=== PATIENT | female | born 1995 | race Caucasian/White ===

== ENCOUNTER 2017-10-20 00:31 | Emergency (ER) | payer OTHER | END 2017-10-20 01:30 | disposition home or self-care (01) | LOC: FTE 00:31 | DX: O99.511 Diseases of the respiratory system complicating pregnancy, first trimester (principal); J20.9 Acute bronchitis, unspecified; Z3A.12 12 weeks gestation of pregnancy | CPT/HCPCS: 99284 ==

== ENCOUNTER 2017-12-03 13:42 | Emergency (ER) | payer OTHER | END 2017-12-03 14:10 | disposition home or self-care (01) | LOC: E/R 13:42 | DX: H10.023 Other mucopurulent conjunctivitis, bilateral (principal); J01.90 Acute sinusitis, unspecified | CPT/HCPCS: 99284; Z7502 ==

== ENCOUNTER 2018-01-09 14:41 | Outpatient (CLI) | payer OTHER ==
[2018-01-09 15:26] LABS: RUPTURE FETAL MEMBRANES NEGATIVE (NEGATIVE)
== END 2018-01-09 17:05 | disposition home or self-care (01) ==
LOC: OBT 14:41 → L-D 14:41 → OBT 17:05
DX: O42.912 Preterm premature rupture of membranes, unspecified as to length of time between rupture and onset of labor, second trimester (principal); Z3A.26 26 weeks gestation of pregnancy
CPT/HCPCS: 76815; 84112

== ENCOUNTER 2018-02-27 07:29 | Outpatient (CLI) | payer OTHER ==
[2018-02-27 08:46] LABS: ADD UMIC YES; UR ASCORBIC ACID NEGATIVE (NEGATIVE); UR BILIRUBIN (Dip) NEGATIVE (NEGATIVE); UR BLOOD (Dip) NEGATIVE (NEGATIVE); UR CLARITY SLIGHTLY CLOUDY (CLEAR); UR COLOR YELLOW (YELLOW); UR GLUCOSE (Dip) NEGATIVE (NEGATIVE); UR KETONES (Dip) NEGATIVE (NEGATIVE); UR LEUKOCYTE ESTERASE (Dip) 2+ Leu/ul (NEGATIVE); UR MUCUS FEW /HPF (NONE SEEN); UR NITRITE (Dip) NEGATIVE (NEGATIVE); UR RBC 1 /HPF (0-5); UR SPECIFIC GRAVITY (Dip) 1.017 (1.003-1.030); UR SQUAMOUS EPITHELIAL CELL FEW /HPF (FEW); UR TOTAL PROTEIN (Dip) NEGATIVE (NEGATIVE); UR UROBILINOGEN (Dip) 2+ mg/dL (NEGATIVE); UR WBC 6 /HPF (0-5)
== END 2018-02-27 10:19 | disposition home or self-care (01) ==
LOC: OBT 07:29 → L-D 07:29 → OBT 10:19
DX: O26.893 Other specified pregnancy related conditions, third trimester (principal); Z3A.33 33 weeks gestation of pregnancy; R10.9 Unspecified abdominal pain
CPT/HCPCS: 76817; 76818; 81001

== ENCOUNTER 2018-04-01 07:44 | Inpatient (IN) | payer OTHER ==
[2018-04-01 09:19] LABS: RUPTURE FETAL MEMBRANES POSITIVE (NEGATIVE)
[2018-04-01] MEDS ORDERED: MISOPROSTOL 200 MCG TAB PR ×2 (09:30→17:30)
[2018-04-01] MEDS ORDERED: METHYLERGONOVINE 0.2 MG INJ IM ×2 (09:30→17:30)
[2018-04-01] MEDS ORDERED: OXYTOCIN 30 UNITS/LR 500 ML IV ×3 (09:30→17:30)
[2018-04-01] MEDS ORDERED: CEFAZOLIN 2 GM/50 ML (PMX) 50 ML IV (09:30)
[2018-04-01] MEDS ORDERED: CARBOPROST 250 MCG INJ IM ×2 (09:30→17:30)
[2018-04-01 09:56] LABS: ADD MAN DIFF? NO
[2018-04-01] MEDS: LACTATED RINGER'S 1,000 ML IV ×2 (09:59→19:00)
[2018-04-01 10:03] LABS: BASOPHIL # 0.1 10^3/ul (0.0-0.1); BASOPHILS % 0.6 % (0.0-2.0); EOSINOPHILS # 0.1 10^3/ul (0.0-0.5); HEMATOCRIT 37.2 % (37.0-47.0); HEMOGLOBIN 12.7 g/dl (12.0-16.0); LYMPHOCYTES # 2.2 10^3/ul (0.8-2.9); LYMPHOCYTES % 27.2 % (15.0-51.0); MEAN CORPUSCULAR HEMOGLOBIN 29.4 pg (29.0-33.0); MEAN CORPUSCULAR HGB CONC 34.1 g/dl (32.0-37.0); MEAN CORPUSCULAR VOLUME 86.1 fl (82.0-101.0); MEAN PLATELET VOLUME 10.5 fl (7.4-10.4); MONOCYTE # 0.6 10^3/ul (0.3-0.9); NEUTROPHILS % 62.8 % (39.0-77.0); PLATELET COUNT 240 10^3/UL (140-415); RED BLOOD COUNT 4.32 10^6/ul (4.20-5.40); RED CELL DISTRIBUTION WIDTH 13.5 % (11.5-14.5)
[2018-04-01 10:33] LABS: INR 0.89; PROTIME 12.1 Sec (11.9-14.9); PT RATIO 0.9
[2018-04-01 10:34] LABS: PARTIAL THROMBOPLASTIN TIME 27.4 Sec (25.0-35.0)
[2018-04-01] MEDS ORDERED: morphine SULFATE/PF (10 MG/10 ML) INJ (13:13)
[2018-04-01] MEDS ORDERED: METOCLOPRAMIDE 10 MG INJ (13:13)
[2018-04-01] MEDS ORDERED: EPHEDrine SULFATE 50 MG/5 ML SYG (13:13)
[2018-04-01] MEDS ORDERED: ONDANSETRON 4 MG INJ (13:13)
[2018-04-01] MEDS ORDERED: BUPIVACAINE 0.75%/DEXT (SPINAL) 2 ML INJ (13:14)
[2018-04-01] MEDS ORDERED: OXYTOCIN 10 UNIT INJ ×2 (13:14→13:55)
[2018-04-01] MEDS ORDERED: MIDAZOLAM 1 MG/ML 2 ML INJ (14:06)
[2018-04-01] MEDS ORDERED: DIPHENHYDRAMINE 50 MG INJ IV (15:00)
[2018-04-01] MEDS ORDERED: EPHEDrine SULFATE 50 MG/5 ML SYG IV (15:00)
[2018-04-01] MEDS ORDERED: NALOXONE (0.4 MG/ML) INJ IV (15:00)
[2018-04-01] MEDS ORDERED: morphine 2 MG INJ IV ×2 (15:00)
[2018-04-01] MEDS: OXYTOCIN 30 UNITS/LR 500 ML IV ×2 (15:18→17:52)
[2018-04-01] MEDS: ONDANSETRON 4 MG INJ IV (17:57)
[2018-04-01] MEDS: morphine SULFATE/PF (10 MG/10 ML) INJ SPINAL (19:30)
[2018-04-01] MEDS: SENNA/DOCUSATE NA (8.6MG/50MG) TAB PO (21:00)
[2018-04-01 22:28] LABS: RAPID PLASMA REAGIN NONREACTIVE (NR)
[2018-04-02] MEDS: LACTATED RINGER'S 1,000 ML IV ×3 (02:13→17:14)
[2018-04-02 07:18] LABS: ADD MAN DIFF? NO
[2018-04-02 07:24] LABS: BASOPHILS % 0.3 % (0.0-2.0); HEMATOCRIT 30.7 % (37.0-47.0); HEMOGLOBIN 10.4 g/dl (12.0-16.0); LYMPHOCYTES # 2.1 10^3/ul (0.8-2.9); LYMPHOCYTES % 19.2 % (15.0-51.0); MEAN CORPUSCULAR HEMOGLOBIN 29.5 pg (29.0-33.0); MEAN CORPUSCULAR HGB CONC 33.9 g/dl (32.0-37.0); MEAN PLATELET VOLUME 10.6 fl (7.4-10.4); MONOCYTE # 0.9 10^3/ul (0.3-0.9); MONOCYTES % 8.6 % (0.0-11.0); NEUTROPHIL # 7.7 10^3/ul (1.6-7.5); NEUTROPHILS % 71.5 % (39.0-77.0); PLATELET COUNT 210 10^3/UL (140-415); RED BLOOD COUNT 3.53 10^6/ul (4.20-5.40); RED CELL DISTRIBUTION WIDTH 13.8 % (11.5-14.5)
[2018-04-02 07:24] LABS: WHITE BLOOD COUNT 10.7 10^3/ul (4.8-10.8)
[2018-04-02] MEDS: SENNA/DOCUSATE NA (8.6MG/50MG) TAB PO ×2 (08:55→21:09)
[2018-04-02] MEDS: KETOROLAC 30 MG INJ IV (08:56)
[2018-04-02] MEDS: IBUPROFEN 800 MG TAB PO ×2 (15:12→22:00)
[2018-04-02] MEDS: OXYCODONE/ACETAMINOPHEN (5/325) TAB PO (22:02)
[2018-04-03] MEDS: LACTATED RINGER'S 1,000 ML IV ×2 (01:14→09:14)
[2018-04-03] MEDS: IBUPROFEN 800 MG TAB PO ×3 (05:32→22:00)
[2018-04-03] MEDS: SENNA/DOCUSATE NA (8.6MG/50MG) TAB PO ×2 (09:09→22:00)
[2018-04-03] MEDS: LANOLIN 7 GM TUBE TOP (17:34)
[2018-04-03] MEDS: OXYCODONE/ACETAMINOPHEN (5/325) TAB PO (17:47)
[2018-04-04] MEDS: IBUPROFEN 800 MG TAB PO (06:36)
[2018-04-04] MEDS: SENNA/DOCUSATE NA (8.6MG/50MG) TAB PO (09:49)
[2018-04-04] MEDS: DIPHTH/TET/ACEL PERTUSS (ADULT) 0.5 ML VIAL IM* (10:48)
== END 2018-04-04 12:50 | disposition home or self-care (01) | DRG 766 ==
LOC: OBT 07:44 → L-D 07:44 → OBT 08:55 → L-D 08:55 → PP1 14:55
PROVIDERS: Obstetrics & Gynecology
PROC: 10D00Z1 Extraction of Products of Conception, Low, Open Approach (ICD-10-PCS; principal; 2018-04-01 12:00)
PROC: 3E033VJ Introduction of Other Hormone into Peripheral Vein, Percutaneous Approach (ICD-10-PCS; 2018-04-01 12:00)
DX: O34.211 Maternal care for low transverse scar from previous cesarean delivery (principal); Z3A.38 38 weeks gestation of pregnancy; Z37.0 Single live birth
CPT/HCPCS: 84112; 85025; 85610; 85730; 86592; 86850; 86900; 86901; 90715

== ENCOUNTER 2018-04-14 23:31 | Emergency (ER) | payer OTHER ==
[2018-04-15] MEDS: CEPHALEXIN 500 MG CAP PO (03:04)
== END 2018-04-15 04:41 | disposition home or self-care (01) ==
LOC: FTE 23:31
DX: T81.31XA Disruption of external operation (surgical) wound, not elsewhere classified, initial encounter (principal); Y82.8 Other medical devices associated with adverse incidents
CPT/HCPCS: 99283; Z7502

== ENCOUNTER 2018-12-23 07:30 | Emergency (ER) | payer OTHER ==
[2018-12-23 08:23] LABS: ADD MAN DIFF? NO
[2018-12-23] MEDS: IBUPROFEN 600 MG TAB PO (08:26)
[2018-12-23] MEDS: ONDANSETRON (ODT) 4 MG TAB ODT (08:26)
[2018-12-23 08:27] LABS: BASOPHIL # 0.1 10^3/ul (0.0-0.1); BASOPHILS % 1.3 % (0.0-2.0); EOSINOPHILS # 0.2 10^3/ul (0.0-0.5); HEMATOCRIT 45.3 % (37.0-47.0); HEMOGLOBIN 15.9 g/dl (12.0-16.0); LYMPHOCYTES # 2.5 10^3/ul (0.8-2.9); LYMPHOCYTES % 45.5 % (15.0-51.0); MEAN CORPUSCULAR HEMOGLOBIN 31.7 pg (29.0-33.0); MEAN CORPUSCULAR HGB CONC 35.1 g/dl (32.0-37.0); MEAN CORPUSCULAR VOLUME 90.4 fl (82.0-101.0); MEAN PLATELET VOLUME 10.3 fl (7.4-10.4); MONOCYTE # 0.5 10^3/ul (0.3-0.9); MONOCYTES % 9.5 % (0.0-11.0); NEUTROPHIL # 2.2 10^3/ul (1.6-7.5); NEUTROPHILS % 39.5 % (39.0-77.0); PLATELET COUNT 217 10^3/UL (140-415); RED BLOOD COUNT 5.01 10^6/ul (4.20-5.40); RED CELL DISTRIBUTION WIDTH 12.2 % (11.5-14.5)
[2018-12-23 08:27] LABS: WHITE BLOOD COUNT 5.5 10^3/ul (4.8-10.8)
[2018-12-23 08:34] LABS: ADD UMIC NO; UR ASCORBIC ACID NEGATIVE (NEGATIVE); UR BILIRUBIN (Dip) NEGATIVE (NEGATIVE); UR BLOOD (Dip) NEGATIVE (NEGATIVE); UR CLARITY CLEAR (CLEAR); UR COLOR YELLOW (YELLOW); UR GLUCOSE (Dip) NEGATIVE (NEGATIVE); UR KETONES (Dip) NEGATIVE (NEGATIVE); UR LEUKOCYTE ESTERASE (Dip) NEGATIVE Leu/ul (NEGATIVE); UR NITRITE (Dip) NEGATIVE (NEGATIVE); UR SPECIFIC GRAVITY (Dip) 1.023 (1.003-1.030); UR TOTAL PROTEIN (Dip) NEGATIVE (NEGATIVE); UR UROBILINOGEN (Dip) NEGATIVE (NEGATIVE)
[2018-12-23 08:47] LABS: ALANINE AMINOTRANSFERASE 42 IU/L (13-69); ALBUMIN 4.5 g/dl (3.3-4.9); ALKALINE PHOSPHATASE 66 IU/L (42-121); ANION GAP 8 (5-13); ASPARTATE AMINO TRANSFERASE 25 IU/L (15-46); BILIRUBIN,INDIRECT 0.5 mg/dl (0-1.1); BILIRUBIN,TOTAL 0.5 mg/dl (0.2-1.3); BLOOD UREA NITROGEN 10 mg/dl (7-20); CALCIUM 9.5 mg/dl (8.4-10.2); CARBON DIOXIDE 28 mmol/L (21-31); CHLORIDE 104 mmol/L (97-110); CREATININE 0.57 mg/dl (0.44-1.00); Estimated GFR > 60 mL/min (>60); GLUCOSE 104 mg/dl (70-220); POTASSIUM 4.2 mmol/L (3.5-5.1); SODIUM 140 mmol/L (135-144); TOTAL PROTEIN 7.3 g/dl (6.1-8.1)
== END 2018-12-23 10:37 | disposition home or self-care (01) ==
LOC: FTE 10:37
DX: N93.8 Other specified abnormal uterine and vaginal bleeding (principal); M62.830 Muscle spasm of back; R10.2 Pelvic and perineal pain
CPT/HCPCS: 36415; 76830; 76856; 80053; 81003; 81025; 85025; 99284-25

== ENCOUNTER 2019-04-01 09:49 | Emergency (ER) | payer OTHER ==
[2019-04-01] MEDS: ALBUTEROL 0.083% (NEB) 2.5 MG/3 ML AMP NEB (11:11)
[2019-04-01] MEDS: IPRATROPIUM (NEB) 0.5 MG/2.5 ML AMP NEB (11:11)
[2019-04-01] MEDS: METHYLPREDNISOLONE 125 MG INJ IM (11:12)
== END 2019-04-01 13:13 | disposition home or self-care (01) ==
LOC: FTE 09:49
DX: H66.003 Acute suppurative otitis media without spontaneous rupture of ear drum, bilateral (principal)
CPT/HCPCS: 71046; 81025; 94664; 96372; 99284-25